=== PATIENT | female | born 1960 | race Caucasian/White ===

== ENCOUNTER 2020-04-09 09:22 | Outpatient (CLI) | payer OTHER, SELFPAY | END 2020-04-09 09:23 | disposition home or self-care (01) | LOC: ANHCOVIDDT 09:22 | PROVIDERS: Visit Provider Plastic Surgery | DX: Z01.818 Encounter for other preprocedural examination (principal); Z11.59 Encounter for screening for other viral diseases | CPT/HCPCS: 87635; C9803; U0003 ==

== ENCOUNTER 2020-04-11 09:28 | Outpatient (CLI) | payer OTHER, SELFPAY ==
[2020-04-11 17:59] LABS: SARS-CoV-2 RNA PCR Negative
== END 2020-04-11 09:29 | disposition home or self-care (01) ==
LOC: ANHCOVIDDT 09:29
PROVIDERS: Visit Provider Plastic Surgery
DX: Z01.818 Encounter for other preprocedural examination (principal); Z11.59 Encounter for screening for other viral diseases
CPT/HCPCS: 87635; C9803; U0003

== ENCOUNTER 2020-04-12 02:10 | Day surgery (SDC) | payer OTHER, SELFPAY ==
[2020-04-09 10:18] VITALS: BMI 18.3
--- NOTE | 2020-04-11 21:45 | HP_ITS ---
DATE OF SERVICE: 04/12/2020 PREOPERATIVE DIAGNOSIS: Verrucous carcinoma, right anterior thigh. HISTORY: This patient is 59. She is referred by Dr. Funez with a new biopsy dated 03/21/2020 indicating verrucous carcinoma from the right thigh. The margins sampled were free of tumor. The biopsy site was [address] Funez's recommendation was for a wider margin of resection. The patient prefers to do this under sedation anesthetic. She has had other skin cancers removed. She is aware of the possibility of scars, numbness, infection, and possible recurrence. ALLERGIES: SHE HAS AN ALLERGY TO SULFA. CURRENT MEDICATIONS: 1. Estradiol. 2. Buspirone. 3. Vitamin D2. 4. Alendronate. PAST SURGICAL HISTORY: Prior surgeries are only related to periodontal structures in 2018. She is a nonsmoker. Has a history of melanoma taken from the left thigh 10 years ago and she suffers some from anxiety she says. FAMILY HISTORY: Noncontributory. SOCIAL HISTORY: She lives in [place]. She works for the [employer] [employer]. PHYSICAL EXAMINATION: GENERAL: She is alert and cooperative. She requests sedation anesthetic for this procedure. VITAL SIGNS: She is 5 feet 5 inches, weighs 116 pounds. She is in no distress. HEENT: Unremarkable. CHEST: Clear to auscultation. HEART: Regular rate and rhythm by palpation. ABDOMEN: Soft, nontender. EXTREMITIES: Normal. SKIN EXAM: Reveals the biopsy site on the right anterior thigh. There is no palpable adenopathy. 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 PLAN: Excision without frozen section under MAC anesthetic. D I MT: Hamzah
[2020-04-12] MEDS: LACTATED RINGERS 1,000 ML 30 ML IV CONT (07:15)
[2020-04-12 07:22] VITALS: BP 102/65; PULSE 78; RESP 20; TEMP 36.8; O2SAT 100
--- NOTE | 2020-04-12 07:46 | WPDHPUPDATE1 ---
History and Physical Update Update Date/Time: 04/12/20 07:46 History and Physical has been reviewed, including an updated exam of the patient. There are NO changes in the patient's condition. Risks, benefits, and alternatives have been discussed and questions answered. Patient agrees to proceed with procedure.
--- NOTE | 2020-04-12 07:58 | WPDANESEPPF ---
Anes - Initial Pre Proc Eval Procedure: Operation Date: 04/12/20 08:15 Proposed Procedures p Excision Of Verrucous Carcinoma Right Anterior Leg - Deepak River MD Date/Time: 04/12/20 07:58 Surgeon: Deepak River MD Pre Op Diagnosis: Verrucous carcinoma right anterior leg Patient Data Age: 59 Gender: F Height: 5 ft 5 in Weight: 49.1 kg Last Vital Signs Temp 36.8 C 04/12/20 07:22 Pulse 78 04/12/20 07:22 Resp 20 04/12/20 07:22 BP 102/65 04/12/20 07:22 Pulse Ox 100 04/12/20 07:22 Allergies Allergy/AdvReac Type Severity Reaction Status Date / Time Sulfa (Sulfonamide AdvReac Unknown NAUSEA Verified 04/12/20 07:22 Antibiotics) Home Medications Medication Instructions Recorded Confirmed Type alendronate 70 mg PO WEEKLY 04/09/20 04/12/20 History buspirone 7.5 mg PO QPM 04/09/20 04/12/20 History ergocalciferol (vitamin D2) 50,000 unit PO WEEKLY 04/09/20 04/12/20 History [Vitamin D2] estradiol 1 mg PO DAILY 04/09/20 04/12/20 History Patient hx anesthesia problems: none Family hx anesthesia problems: none [facility] Past Medical History Medical History (Updated 04/12/20 @ 07:58 by Prabhjot Benson MD) GERD (gastroesophageal reflux disease) Melanoma Surgical History Surgical History (Updated 04/12/20 @ 07:59 by Prabhjot Benson MD) H/O: hysterectomy History of Rishi fundoplication Anes - Eval Final PreProcedure Day of Procedure 04/12/20 07:58 Patient weight: normal Heart: regular rate and rhythm Lungs: clear to auscultation Airway: Mallampati scale class 1 Neurological: alert and oriented Last oral intake: >/= 8 hours ASA classification: II Emergent: no Anesthetic plan: proceed Anesthesia type and monitoring: general GIVS and standard monitoring Informed Consent: The patient's anesthetic plan and its attendant risks and benefits were discussed with the patient/family/POA. Questions were solicited and answers provided to the satisfaction of the patient/family/POA.
[2020-04-12] MEDS: LIDO 1%/EPINEPHRINE 1:100,000 20 ML VIAL 10 ML INFILTRATE (08:54)
[2020-04-12] MEDS: BACITRACIN OINTMENT 15 GM TUBE 1 APPLIC TOPICAL (08:54)
--- NOTE | 2020-04-12 09:08 | P.OPB_ITS ---
Procedure Note - Brief Procedure Note - Brief Date of procedure: 04/12/20 Pre-op diagnosis: Verrucous carcinoma right anterior leg Post-op diagnosis: same Procedure performed: 2.0 cm excision with complex repair 7.0 cm. Anesthesia: MAC Surgeon: Deepak River MD Press Box Custodian: Ubaldo Estimated blood loss (mL): 3 Tourniquet time (min): 0 Drains: No Packing: No Pathology: yes Complications: No immediate complications Condition: stable Disposition: PACU
[2020-04-12 09:13] VITALS: BP 87/58; PULSE 92; RESP 12; O2SAT 100
--- NOTE | 2020-04-12 09:27 | P.OP_ITS ---
Procedure Note - Detailed Date of procedure: 04/12/20 Pre-op diagnosis: Verrucous carcinoma right anterior leg Post-op diagnosis: same Procedure performed: 2.0 cm excision of verrucous carcinoma of the right anterior thigh with complex repair 7 cm Description of procedure: The biopsy site was easily identified and marked in the holding area. The patient was taken to the operating room. She was placed supine on the operating table. A time-out was held and confirmed. She was given IV sedation and the extremity was prepped and draped in the usual fashion. The biopsy site is a round, area approximately 12 mm in diameter. There is 2- 3 mm of surrounding erythema. There excision was marked just outside the erythema and the axis of the closure was marked as well. This area was infiltrated with 1% lidocaine with epinephrine. The excision was carried out as marked into the deep subcutaneous tissue. The specimen was marked at its most proximal edge for 12:00 p.m. and sent for permanent section. The wound margins were extensively undermined at the superficial fascial layer , more than 2 cm in all directions. the wound was closed in several layers with 3-0 Vicryl suture in the fascia and in the dermis. The skin was then closed with a running intradermal 3-0 Vicryl suture. Glue was applied over that. No bandage was applied. She is discharged from the operating room in stable condition. She is discharged with a prescription for hydrocodone 5-325 6. Surgeon: Deepak River MD
[2020-04-12 09:40] VITALS: BP 92/57; PULSE 83; RESP 12
[2020-04-12 10:20] VITALS: BP 101/63; PULSE 76; RESP 14
== END 2020-04-12 10:35 | disposition home or self-care (01) ==
PROVIDERS: PCP Physician Assistant; Visit Provider Plastic Surgery
PROC: (CPT 11602; principal; 2020-04-12 08:15)
DX: C44.702 Unspecified malignant neoplasm of skin of right lower limb, including hip (principal); K21.9 Gastro-esophageal reflux disease without esophagitis; Z85.820 Personal history of malignant melanoma of skin
CPT/HCPCS: 11602; 13121; 88305; A9270; J2250; J2405; J2704; J3010; J7120

== ENCOUNTER → 2020-11-14 13:02 | Outpatient (CLI) | payer OTHER, SELFPAY ==
--- NOTE | ~2020-11-14 | DEXA_ITS ---
Bone Density Report Name: Ana Laura Tipton Age: 60 Sex: Female Ethnicity: White Date of : 1960 Indication: osteopenia; monitoring treatment; hysterectomy; postmenopausal Referring Provider: HEMALATHA WILLIS Study: Bone densitometry was performed. Exam Date: November 14, 2020 Accession number: [id number] Bone Density: Region BMD T-score Z-score Classification AP Spine (L1-L4) 0.983 -0.6 0.7 Normal Femoral Neck (Left) 0.609 -2.2 -1.0 Osteopenia Total Hip (Left) 0.779 -1.3 -0.5 Osteopenia Femoral Neck (Right) 0.601 -2.2 -1.0 Osteopenia Total Hip (Right) 0.720 -1.8 -1.0 Osteopenia Total Hip Mean 0.750 -1.6 -0.8 Osteopenia World Health Organization criteria for BMD impression classify patients as: Normal (T-score at or above -1.0), Osteopenia (T-score between -1.0 and -2.5), or Osteoporosis (T-score at or below -2.5). 10-year Fracture Risk: FRAX not reported because: Treated for osteoporosis Previous Exams: Region Exam Age BMD T-score BMD Change BMD Change Date g/cm2 vs Baseline vs Previous AP Spine(L1-L4) 11/14/2020 60 0.983 -0.6 -0.111* 0.021 06/29/2018 57 0.962 -0.8 -0.132* -0.005 06/09/2015 54 0.967 -0.7 -0.127* -0.064* 05/31/2013 52 1.031 -0.1 -0.063* -0.063* 03/22/2007 46 1.094 0.4 Total Hip(Left) 11/14/2020 60 0.779 -1.3 -0.084* 0.036* 06/29/2018 57 0.743 -1.6 -0.119* -0.062* 06/09/2015 54 0.805 -1.1 -0.057* -0.017 05/31/2013 52 0.822 -1.0 -0.040* -0.040* 03/22/2007 46 0.862 -0.7 Total Hip(Right) 11/14/2020 60 0.720 -1.8 -0.144* -0.003 06/29/2018 57 0.723 -1.8 -0.140* -0.097* 06/09/2015 54 0.820 -1.0 -0.043* 0.027* 05/31/2013 52 0.793 -1.2 -0.071* -0.071* 03/22/2007 46 0.864 -0.6 *Denotes significance at 95% confidence level, LSC for AP Spine = 0.022 g/cm2, LSC for Total Hip = 0.027 g/cm2 Clinical Information Provided by Patient: Is being treated for osteoporosis Has used the following medications: Fosamax (i.e. alendronate), Vitamin D Has the following medical conditions: Hysterectomy Patient maximum height was 65 Menopause Age: 42 No regular weight bearing exercise Drinks caffeinated beverages Onset of menses at age 15 Number of children 1 Impression: The patient
--- NOTE | ~2020-11-14 | MM_ITS ---
EXAMINATION: MM screening juan diego BI w tom HISTORY: Screening mammogram TECHNIQUE: Craniocaudal and mediolateral oblique 3-D tomosynthesis images were obtained and synthetic 2-D images were generated. CAD analysis was submitted and interpreted. COMPARISON: 07/12/2019, 06/29/2018, 06/16/2017 bilateral digital screening mammogram examinations BREAST PARENCHYMAL COMPOSITION: The breasts are heterogeneously dense, which may obscure small masses . FINDINGS: There is an increased number of microcalcifications primarily in the mid to upper outer lef t breast. Diagnostic left mammogram with magnification views is recommended for better definition of these microcalcifications. Otherwise there is no evidence of suspicious mass, calcification, or architectural distortion to sugg est malignancy in either breast. There has been no other suspicious interval change. IMPRESSION: 1. Bilateral microcalcifications, increased in number on the left 2. Diagnostic left mammogram with magnification views is recommended. BI-RADS Category 0: Incomplete: Needs additional imaging evaluation. Reviewed, dictated and finalized at location A. USION SPECIALIST
== END ==
PROVIDERS: PCP Physician Assistant; Visit Provider Obstetrics & Gynecology Gynecology
DX: Z12.31 Encounter for screening mammogram for malignant neoplasm of breast (principal); Z78.0 Asymptomatic menopausal state; R92.8 Other abnormal and inconclusive findings on diagnostic imaging of breast; M85.852 Other specified disorders of bone density and structure, left thigh; M85.851 Other specified disorders of bone density and structure, right thigh
CPT/HCPCS: 77063; 77067; 77080

== ENCOUNTER → 2020-11-27 09:11 | Outpatient (CLI) | payer OTHER, SELFPAY ==
--- NOTE | ~2020-11-27 | MM_ITS ---
EXAMINATION: MM diagnostic mammo unilat LT HISTORY: Indeterminate left breast calcifications on screening mammogram TECHNIQUE: Additional images of the left breast were performed. CAD analysis was submitted and interp reted. COMPARISON: 11/14/2020, 07/12/2019, 06/29/2018, 06/16/2017 FINDINGS: There are regional calcifications in the upper outer quadrant of the left breast. Many appe ar amorphous on the craniocaudal view and demonstrate a linear configuration on the mediolateral view . No suspicious mass is identified. IMPRESSION: 1. Probably benign left breast calcifications. 2. Recommend 6 month follow-up left diagnostic mammogram. BI-RADS category 3, probably benign findings. Reviewed, dictated and finalized at location A. ANICAL COMMISSIONING ENGINEER
== END ==
PROVIDERS: PCP Physician Assistant; Visit Provider Obstetrics & Gynecology Gynecology
DX: R92.8 Other abnormal and inconclusive findings on diagnostic imaging of breast (principal)
CPT/HCPCS: 77065

== ENCOUNTER → 2021-05-28 07:37 | Outpatient (CLI) | payer OTHER, SELFPAY ==
--- NOTE | ~2021-05-28 | MM_ITS ---
EXAMINATION: MM diagnostic juan diego LT w tom HISTORY: Six-month follow-up for probably benign left breast calcifications TECHNIQUE: Craniocaudal, mediolateral, and mediolateral oblique 3-D tomosynthesis images of the breas ts were performed and synthetic 2-D images were generated. Magnification views are also obtained. CAD analysis was submitted and interpreted. COMPARISON: 11/27/2020, 11/14/2020, 07/12/2019, 06/29/2018 BREAST PARENCHYMAL COMPOSITION: The breasts are heterogeneously dense, which may obscure small masses . FINDINGS: Again seen are stable regional calcifications in the upper outer quadrant of the left breas t. Many appear a more fixed on the craniocaudal view and demonstrate a linear configuration on the me diolateral view, suggestive of milk of calcium. No suspicious mass is identified. IMPRESSION: 1. Probably benign left breast calcifications. 2. Recommend 6 month follow-up left diagnostic mammogram. BI-RADS category 3, probably benign findings. Reviewed, dictated and finalized at location A.
== END ==
PROVIDERS: Visit Provider Obstetrics & Gynecology Gynecology
DX: R92.8 Other abnormal and inconclusive findings on diagnostic imaging of breast (principal)
CPT/HCPCS: 77061; 77065; G0279

== ENCOUNTER 2021-08-03 10:57 | Emergency (ER) | payer OTHER, SELFPAY ==
[2021-08-03 11:10] VITALS: BP 119/68; PULSE 65; RESP 16; TEMP 36.6; O2SAT 98
--- NOTE | 2021-08-03 12:37 | ED.URI ---
HPI - URI/Sore Throat General Chief Complaint: Upper Respiratory Infection Stated Complaint: de guzman/chills/sob Time Seen by Provider: 08/03/21 12:38 Source: patient, family, RN notes reviewed and old records reviewed Mode of arrival: ambulatory Limitations: no limitations History of Present Illness HPI Narrative: 60 year old female presents to [facility] care with 5 day duration of headache,cough, chills,some sore throat discomfort, nasal drainage and congestion. Patient states that when she cough she feels a little short of breath, rates frontal headache 6/10 and aching. Patient states that she has been taking Advil and cough drop, reports that she has been COVID vaccinated. She reports that she is concerned with her symptoms because she has had recent exposure to positive relatative. MD elicited complaint: cough, sore throat, rhinorrhea, nasal congestion and other (headache) Onset (ago): day(s) (DAY 5 OF SYMPTOMS) Related Data Home Medications Medication Instructions Recorded Confirmed buspirone 7.5 mg PO QPM 04/09/20 04/12/20 ergocalciferol (vitamin D2) 50,000 unit PO WEEKLY 04/09/20 04/12/20 [Vitamin D2] estradiol 1 mg PO DAILY 04/09/20 04/12/20 Allergies Allergy/AdvReac Type Severity Reaction Status Date / Time Sulfa (Sulfonamide AdvReac Unknown NAUSEA Verified 08/03/21 12:00 Antibiotics) Review of Systems Review of Systems: CONSTITUTIONAL: Denies fever, SOME chills, no sweats. EYES: Denies visual changes, redness, or discharge. ENT: POSITIVE rhinorrhea, congestion, sore throat, NO otalgia. CARDIOVASCULAR: Denies chest pain, palpitations, or edema. RESPIRATORY: POSITIVE DRY cough NO dyspnea at rest mild when coughing. GASTROINTESTINAL: Denies abdominal pain, nausea, vomiting, or diarrhea. GENITOURINARY: Denies dysuria or hematuria. SKIN: Denies rash or itching. MUSCULOSKELETAL: Denies back pain, joint pain, or myalgia. NEUROLOGIC: POSITIVE INTERMITTENT frontal headache,NO numbness, or weakness. PSYCHIATRIC: Positive history of anxiety or depression. All systems reviewed & are unremarkable except as noted in HPI and below PMFSH Past Medical History Medical History (Updated 08/04/21 @ 00:00 by Background Daemon) GERD (gastroesophageal reflux disease) Melanoma Surgical History Surgical History (Updated 08/09/21 @ 17:29 by Harper Hernandez NP) H/O: hysterectomy History of Rishi fundoplication Status post surgical removal of malignant neoplasm of skin Family History Family History (Updated 08/09/21 @ 17:29 by Harper Hernandez NP) Father Heart disease Other Cerebrovascular accident Social History Social History (Updated 08/09/21 @ 17:27 by Harper Hernandez NP) Smoking status: Never smoker Alcohol intake: never Substance use: never Living arrangements: with family Gender identity (if verbalized by the patient): Female Comments At time of signature, agree with nursing past medical, surgical, social and family history. There is no relevant family history pertinent to the presenting complaint Exam Narrative: GENERAL: Well-appearing, well-nourished, and in no acute distress. HEAD: Normocephalic, atraumatic. EYES: PERRLA and EOMI. ENT: Nares red, clear rhinorrhea no epistaxis. Mucous membranes moist.TM's normal with good light reflex, throat mild redness witu no lesions or exudates, no tonsil swelling some post nasal drainage. NECK: Supple.no lymphadenopathy CHEST: Clear to auscultation. No respiratory distress.SAO2 98% dry cough HEART: Regular rate and rhythm. No murmur heard. Normal peripheral pulses. ABDOMEN: Soft, nontender, nondistended, normal active bowel sounds. EXTREMITIES: Normal range of motion. No edema. SKIN: Warm, dry, no rash. NEURO: No focal deficits. Alert and oriented x3. Course Vital Signs Vital signs: Vital Signs Temperature 36.6 C 08/03/21 11:10 Pulse Rate 65 08/03/21 11:10 Respiratory Rate 16 08/03/21 11:10 Blood Pressure 119/68 08/03/21 11:1
== END 2021-08-03 13:00 | disposition home or self-care (01) ==
PROVIDERS: Emergency Provider Registered Nurse; PCP Physician Assistant
DX: J06.9 Acute upper respiratory infection, unspecified (principal); Z20.822 Contact with and (suspected) exposure to COVID-19; K21.9 Gastro-esophageal reflux disease without esophagitis; Z85.820 Personal history of malignant melanoma of skin
CPT/HCPCS: 87426; 99213; C9803; G0463

== ENCOUNTER → 2021-12-17 08:49 | Outpatient (CLI) | payer OTHER, SELFPAY ==
--- NOTE | ~2021-12-17 | MM_ITS ---
EXAMINATION: MM diagnostic juan diego BI w tom HISTORY: Six-month follow-up for probably benign left breast calcifications TECHNIQUE: Craniocaudal, mediolateral, and mediolateral oblique 3-D tomosynthesis images of the brekehinde ts were performed and synthetic 2-D images were generated. CAD analysis was submitted and interpreted . COMPARISON: 05/28/2021, 11/27/2020, 11/14/2020, 07/12/2019 BREAST PARENCHYMAL COMPOSITION: The breasts are heterogeneously dense, which may obscure small masses . FINDINGS: Left breast: There is stable regional calcifications in the upper outer quadrant of the left breast. Many and appear to be amorphous on the craniocaudal view and demonstrate a linear configuration on th e mediolateral view, suggestive of milk of calcium. No suspicious mass or architectural distortion ar e identified. Right breast: There is no evidence of suspicious mass, calcification, or architectural distortion to suggest malignancy. There has been no suspicious interval change. IMPRESSION: 1. Stable, probably benign left breast calcifications. 2. Given one year of interval stability, recommend 12 month followup diagnostic mammogram. BI-RADS category 3, probably benign findings. Reviewed, dictated and finalized at location A. ORMING MACHINE OPERATOR
== END ==
PROVIDERS: PCP Physician Assistant; Visit Provider Obstetrics & Gynecology Gynecology
DX: R92.8 Other abnormal and inconclusive findings on diagnostic imaging of breast (principal)
CPT/HCPCS: 77062; 77066; G0279

== ENCOUNTER → 2022-10-22 08:43 | Outpatient (CLI) | payer OTHER, SELFPAY ==
--- NOTE | ~2022-10-22 | MM_ITS ---
EXAMINATION: MM diagnostic juan diego BI w tom HISTORY: Follow-up for probably benign left breast calcifications TECHNIQUE: Craniocaudal, mediolateral, and mediolateral oblique 3-D tomosynthesis images of the breas ts were performed and synthetic 2-D images were generated. Magnification views of the left breast are also obtained. CAD analysis was submitted and interpreted. COMPARISON: 12/17/2021, 05/28/2021, 11/27/2020,11/14/2020,07/12/2019 BREAST PARENCHYMAL COMPOSITION: The breasts are heterogeneously dense, which may obscure small masses . FINDINGS: No suspicious mass, calcification, or architectural distortion are identified in either tahir ast to suggest malignancy. There has been no suspicious interval change. Again noted are stable regio nal calcifications in the upper outer quadrant of the left breast, some of which appear to be amorpho us on the craniocaudal view and demonstrate a linear configuration on the mediolateral oblique view. IMPRESSION: 1. No mammographic evidence of malignancy. 2. Recommend routine screening mammography in one year. BI-RADS Category 2: Benign finding(s). Reviewed, dictated and finalized at location A. NCIAL INTERNSHIP
== END ==
PROVIDERS: PCP Physician Assistant; Visit Provider Obstetrics & Gynecology Gynecology
DX: R92.8 Other abnormal and inconclusive findings on diagnostic imaging of breast (principal)
CPT/HCPCS: 77062; 77066; G0279

== ENCOUNTER → 2022-12-04 13:10 | Outpatient (CLI) | payer OTHER, SELFPAY ==
--- NOTE | ~2022-12-04 | DEXA_ITS ---
Bone Density Report Name: REGINA WATSON Age: 62 Sex: Female Ethnicity: White Date of : 1960 Indication: osteopenia; hysterectomy; postmenopausal Referring Provider: HEMALATHA WILLIS Study: Bone densitometry was performed. Exam Date: December 04, 2022 Accession number: [id number] Bone Density: Region BMD T-score Z-score Classification AP Spine (L1-L4) 0.968 -0.7 0.7 Normal Femoral Neck (Left) 0.600 -2.2 -1.0 Osteopenia Total Hip (Left) 0.768 -1.4 -0.5 Osteopenia Femoral Neck (Right) 0.591 -2.3 -1.0 Osteopenia Total Hip (Right) 0.711 -1.9 -0.9 Osteopenia Total Hip Mean 0.740 -1.7 -0.7 Osteopenia World Health Organization criteria for BMD impression classify patients as: Normal (T-score at or above -1.0), Osteopenia (T-score between -1.0 and -2.5), or Osteoporosis (T-score at or below -2.5). 10-year Fracture Risk(1): Major Osteoporotic Fracture 8.7% Hip Fracture 1.5% Reported Risk Factors: [place] (), Neck BMD=0.591, BMI=18.2 (1) FRAX(R) Version 3.08. Fracture probability calculated for an untreated patient. Fracture probability may be lower if the patient has received treatment. Previous Exams: Region Exam Age BMD T-score BMD Change BMD Change Date g/cm2 vs Baseline vs Previous AP Spine(L1-L4) 12/04/2022 62 0.968 -0.7 -0.126* -0.015 11/14/2020 60 0.983 -0.6 -0.111* 0.021 06/29/2018 57 0.962 -0.8 -0.132* -0.005 06/09/2015 54 0.967 -0.7 -0.127* -0.064* 05/31/2013 52 1.031 -0.1 -0.063* -0.063* 03/22/2007 46 1.094 0.4 Total Hip(Left) 12/04/2022 62 0.768 -1.4 -0.094* -0.011 11/14/2020 60 0.779 -1.3 -0.084* 0.036* 06/29/2018 57 0.743 -1.6 -0.119* -0.062* 06/09/2015 54 0.805 -1.1 -0.057* -0.017 05/31/2013 52 0.822 -1.0 -0.040* -0.040* 03/22/2007 46 0.862 -0.7 Total Hip(Right) 12/04/2022 62 0.711 -1.9 -0.153* -0.009 11/14/2020 60 0.720 -1.8 -0.144* -0.003 06/29/2018 57 0.723 -1.8 -0.140* -0.097* 06/09/2015 54 0.820 -1.0 -0.043* 0.027* 05/31/2013 52 0.793 -1.2 -0.071* -0.071* 03/22/2007 46 0.864 -0.6 *Denotes significance at 95% confidence level, LSC for AP Spine = 0.022 g/cm2, LSC for Total Hip = 0.027 g/cm2 Clinical Information Provided by Patient:
== END ==
PROVIDERS: PCP Physician Assistant; Visit Provider Obstetrics & Gynecology Gynecology
DX: Z78.0 Asymptomatic menopausal state (principal); M85.88 Other specified disorders of bone density and structure, other site; M85.852 Other specified disorders of bone density and structure, left thigh; M85.851 Other specified disorders of bone density and structure, right thigh
CPT/HCPCS: 77080

== ENCOUNTER 2023-07-02 09:30 | Day surgery (SDC) | payer OTHER, SELFPAY ==
--- NOTE | 2023-07-01 11:05 | WPDANESEPPF ---
Anes - Initial Pre Proc Eval Procedure: Operation Date: 07/02/23 11:30 Proposed Procedures p Screening Colonoscopy - Ubaldo Pinto MD Date/Time: 07/01/23 11:05 Surgeon: Ubaldo Pinto MD Pre Op Diagnosis: Neoplasm Screening Patient Data Age: 62 Gender: F Height: 1.65 m Weight: 52.5 kg Allergies Allergy/AdvReac Type Severity Reaction Status Date / Time Sulfa (Sulfonamide AdvReac Unknown NAUSEA Verified 07/02/23 09:52 Antibiotics) Home Medications Medication Instructions Recorded Confirmed Type buspirone 5 mg tablet 7.5 mg PO QPM 04/09/20 07/02/23 History ergocalciferol (vitamin D2) 1,250 50,000 unit PO WEEKLY 04/09/20 07/02/23 History mcg (50,000 unit) capsule (Vitamin D2) estradiol 1 mg tablet 1 mg PO DAILY 04/09/20 07/02/23 History sodium,potassium,mag sulfates 17.5 See Rx Instructions PO .COMPLEX 06/15/23 06/23/23 Rx gram-3.13 gram-1.6 gram oral soln #354 mL (Suprep Bowel Prep Kit) Patient hx anesthesia problems: none Family hx anesthesia problems: none Results Review: All pre-operative results and documents have been reviewed as part of the pre-operative evaluation. [facility] Past Medical History Medical History (Updated 07/02/23 @ 10:22 by Ubaldo Pinto MD) Endometriosis GERD (gastroesophageal reflux disease) Melanoma Surgical History Surgical History (Updated 08/09/21 @ 17:29 by Harper Hernandez NP) H/O: hysterectomy History of Rishi fundoplication Status post surgical removal of malignant neoplasm of skin Family History Family History (Updated 08/09/21 @ 17:29 by Harper Hernandez NP) Father Heart disease Other Cerebrovascular accident Social History Social History (Updated 08/09/21 @ 17:27 by Harper Hernandez NP) Smoking status: Never smoker Alcohol intake: never Substance use: never Substance use type: does not use Living arrangements: alone Gender identity (if verbalized by the patient): Female Spiritual care concerns: No Anes - Eval Final PreProcedure Day of Procedure 07/01/23 11:05 Patient weight: normal Heart: regular rate and rhythm Lungs: clear to auscultation and normal air movement Airway: Mallampati scale class II Neurological: alert and oriented Last oral intake: >/= 8 hours ASA classification: II Emergent: no Anesthetic plan: proceed Anesthesia type and monitoring: general GIVS and standard monitoring Results Review: All pre-operative results and documents have been reviewed as part of the pre-operative evaluation. Informed Consent: The patient's anesthetic plan and its attendant risks and benefits were discussed with the patient/family/POA. Questions were solicited and answers provided to the satisfaction of the patient/family/POA.
[2023-07-02 09:54] VITALS: BP 99/59; PULSE 76; RESP 14; TEMP 36.3; O2SAT 100
[2023-07-02] MEDS: LACTATED RINGERS 1,000 ML 150 ML IV CONT (10:12)
--- NOTE | 2023-07-02 10:20 | P.HP_ITS ---
History of Present Illness History of Present Illness Consent: Risks, benefits, and alternatives have been discussed and questions answered. Patient agrees to proceed with procedure. Chief complaint: Neoplasm Screening Narrative: Ana Laura Tipton is a 62 year old female Presents for screening colonoscopy. Patient's current weight appetite and bowel movements are normal. Patient denies abdominal pain. She has had no bleeding. Family history is noncontributory. This colonoscopy 10 years ago was unremarkable. Family history noncontributory. Review of Systems Review of Systems: Systems noncontributory. FOR[facility]LY [facility], [facility] Past Medical History Medical History (Updated 07/02/23 @ 10:22 by Ubaldo Pinto MD) Endometriosis GERD (gastroesophageal reflux disease) Melanoma Surgical History Surgical History (Updated 08/09/21 @ 17:29 by Harper Hernandez NP) H/O: hysterectomy History of Rishi fundoplication Status post surgical removal of malignant neoplasm of skin Family History Family History (Updated 08/09/21 @ 17:29 by Harper Hernandez NP) Father Heart disease Other Cerebrovascular accident Social History Social History (Updated 08/09/21 @ 17:27 by Harper Hernandez NP) Smoking status: Never smoker Alcohol intake: never Substance use: never Substance use type: does not use Living arrangements: alone Gender identity (if verbalized by the patient): Female Spiritual care concerns: No Meds Home Medications and Allergies Home Medications Medication Instructions Recorded Confirmed Type buspirone 5 mg tablet 7.5 mg PO QPM 04/09/20 07/02/23 History ergocalciferol (vitamin D2) 1,250 50,000 unit PO WEEKLY 04/09/20 07/02/23 History mcg (50,000 unit) capsule (Vitamin D2) estradiol 1 mg tablet 1 mg PO DAILY 04/09/20 07/02/23 History sodium,potassium,mag sulfates 17.5 See Rx Instructions PO .COMPLEX 06/15/23 06/23/23 Rx gram-3.13 gram-1.6 gram oral soln #354 mL (Suprep Bowel Prep Kit) Allergies Allergy/AdvReac Type Severity Reaction Status Date / Time Sulfa (Sulfonamide AdvReac Unknown NAUSEA Verified 07/02/23 09:52 Antibiotics) Vital Signs Vital Signs - 24 hr 07/02/23 09:54 Temperature 97.4 F L Pulse Rate 76 Respiratory Rate 14 Blood Pressure 99/59 L Pulse Oximetry 100 Oxygen Delivery Room Air Exam Narrative: Physical exam reveals patient to be alert. Vital signs stable. HEENT exam is unremarkable. Patient is anicteric. Lungs are clear to auscultation and to percussion is without murmur stress sounds. Appy sounds are present soft nontender with no organomegaly. Digital external rectal exam is normal. Assessment and Plan Assessment and plan (1) Encounter for screening colonoscopy: Code(s): Z12.11 - Encounter for screening for malignant neoplasm of colon Status: Acute Assessment and Plan: Patient presents for screening colonoscopy. She appears to be at average risk for colon polyps.
[2023-07-02 12:01] VITALS: BP 94/57; PULSE 79; RESP 14; O2SAT 99
[2023-07-02 12:11] VITALS: BP 93/68; PULSE 74; RESP 16; O2SAT 100
[2023-07-02 12:21] VITALS: BP 108/69; PULSE 67; RESP 16; O2SAT 100
--- NOTE | 2023-07-02 12:37 | WPDANESPN ---
Anes - Prog Note Post-Op Date/Time: 07/02/23 12:37 Cardiovascular status: normal Respiratory status: normal Airway patency: baseline Mental status: baseline Post-Op hydration status: normal Vital Signs: Last Vital Signs Temp 36.3 C L 07/02/23 09:54 Pulse 74 07/02/23 12:11 Resp 16 07/02/23 12:11 BP 93/68 L 07/02/23 12:11 Pulse Ox 100 07/02/23 12:11 O2 Del Method Room Air 07/02/23 12:11 Pain Score (VAS): 0 I/O: Intake & Output 07/01/23 07/02/23 07/02/23 23:59 07:59 15:59 Intake Total 500 Balance 500 Post-procedural complaints: none Patient Feedback: Patient satisfied with anesthetic care. Other Findings: Patient vital signs back to baseline. Patient denies nausea and vomiting. Patient's pain under control. Patient OK for discharge.
== END 2023-07-02 12:35 | disposition home or self-care (01) ==
PROVIDERS: PCP Physician Assistant; Visit Provider Internal Medicine Gastroenterology
PROC: 0DJD8ZZ Inspection of Lower Intestinal Tract, Via Natural or Artificial Opening Endoscopic (ICD-10-PCS; CPT 45378; principal; 2023-07-02 11:30)
DX: Z12.11 Encounter for screening for malignant neoplasm of colon (principal)
CPT/HCPCS: 45378

== ENCOUNTER 2024-02-17 12:07 | Outpatient (CLI) | payer OTHER, SELFPAY ==
--- NOTE | ~2024-02-17 | MM_ITS ---
EXAMINATION: MM screening juan diego BI w tom HISTORY: Screening mammogram TECHNIQUE: Craniocaudal and mediolateral oblique 3-D tomosynthesis images were obtained and synthetic 2-D images were generated.. Bilateral rotated lateral CC views. CAD analysis was submitted and inter preted. COMPARISON: 10/22/2022 diagnostic bilateral mammogram 12/17/2021 bilateral diagnostic mammography BREAST PARENCHYMAL COMPOSITION: The breasts are extremely dense, which lowers the sensitivity of mamm ography.... FINDINGS: Scattered bilateral benign calcifications. There is no evidence of suspicious mass, calcifi cation, or architectural distortion to suggest malignancy in either breast. There has been no suspici ous interval change. IMPRESSION: 1. No mammographic evidence of malignancy. 2. Recommend routine screening mammography in one year. BI-RADS Category 2: Benign finding(s). Reviewed, dictated and finalized at location A.
== END 2024-02-17 12:08 ==
LOC: MICIMG 12:08
PROVIDERS: PCP Internal Medicine; Visit Provider Obstetrics & Gynecology Gynecology
DX: Z12.31 Encounter for screening mammogram for malignant neoplasm of breast (principal)
CPT/HCPCS: 77063; 77067

== ENCOUNTER 2025-02-20 10:23 | Outpatient (CLI) | payer BC, SELFPAY ==
--- NOTE | ~2025-02-20 | MM_ITS ---
EXAMINATION: MM screening juan diego BI w tom HISTORY: Screening TECHNIQUE: Craniocaudal and mediolateral oblique 3-D tomosynthesis images were obtained and synthetic 2-D images were generated. CAD analysis was submitted and interpreted. COMPARISON: Comparison to multiple prior studies sequentially, with oldest reviewed study dated 10/24. BREAST PARENCHYMAL COMPOSITION: Dense: The breasts are heterogeneously dense, which may obscure small masses FINDINGS: There are asymmetries laterally and posteriorly in the left breast on CC view. The right br east is stable without evidence for malignancy. IMPRESSION: 1. Developing left breast asymmetry laterally on CC view, posterior third. 2. Additional mammographic views and possible breast ultrasound are recommended. BI-RADS Category 0: Incomplete: Needs additional imaging evaluation. Reviewed, dictated and finalized at location A. IMPRESSION: 1. Developing left breast asymmetry laterally on CC view, posterior third. 2. Additional mammographic views and possible breast ultrasound are recommended . BI-RADS Category 0: Incomplete: Needs additional imaging evaluation.
== END 2025-02-20 10:24 | disposition home or self-care (01) ==
LOC: MICIMG 10:23
PROVIDERS: PCP Internal Medicine; Visit Provider Internal Medicine
DX: Z12.31 Encounter for screening mammogram for malignant neoplasm of breast (principal); R92.8 Other abnormal and inconclusive findings on diagnostic imaging of breast
CPT/HCPCS: 77063; 77067

== ENCOUNTER 2025-03-03 12:28 | Outpatient (CLI) | payer BC, SELFPAY ==
--- NOTE | ~2025-03-03 | US_ITS ---
Please refer to diagnostic mammogram report dated 03/03/2025 for details. Reviewed, dictated and finalized at location A.
--- NOTE | ~2025-03-03 | MM_ITS ---
EXAMINATION: MM diagnostic juan diego LT w tom HISTORY: Follow-up left breast asymmetry TECHNIQUE: Additional 3-D tomosynthesis images of left were performed and synthetic 2-D images were g enerated. CAD analysis was submitted and interpreted. High resolution complete left breast ultrasound was performed. COMPARISON: Comparison to multiple prior studies sequentially, with oldest reviewed study dated 03/2021. BREAST PARENCHYMAL COMPOSITION: Dense: The breasts are extremely dense, which lowers the sensitivity of mammography. FINDINGS: MAMMOGRAPHIC FINDINGS: There are no suspicious masses, calcifications or architectural distortion to suggest malignancy. ULTRASOUND: Complete US of all 4 quadrants of the left breast/s and retroareolar region was reviewed. There are m ultiple cysts of the left breast including a complicated 7 mm cyst at 12:00, 1 cm from the nipple. No suspicious masses to suggest malignancy. IMPRESSION: 1. No evidence for malignancy in the left breast. Benign findings. 2. . Routine yearly screening mammogram and regular clinical breast examination are recommended. BI-RADS Category 2: Benign finding(s). Reviewed, dictated and finalized at location A.
--- OUTSIDE RECORDS SUMMARY | 2025-03-03 12:32 | XMS_ITS | Encounter Summary ---
Author Organization [facility] Address [address] [place] [address] Care Team Providers Care Per Diem Clerk Name Role Phone Unavailable Primary Care Provider Unavailabl e Encounter Details Date Type Department Care Team (Late st Contact Info) Description 07/14/2023 Lab Requisition [facility] - DermPath Lab [address] [place] [id number] Duke Funez MD [address] [place], [place] [id number] Social History Tobacco Use Types Packs/Day Years Used Date Smoking Tobacco: Never Assessed Sex and Gender Information Value Date Recorded Sex Assigned at Not on file Gender Identity Not on file Sexual Orientation Not on file documented as of this encounter Plan of Treatment Not on file documented as of this encounter Procedures Procedure Name Priority Date/Time Associated Diagnosis Comments DERMATOPATHOLOGY Routine 07/13/2023 12:0 0 AM CDT documented in this encounter Results * DERMATOPATHOLOGY (07/13/2023 12:00 AM CDT) Case Report Dermatopathology Report Case: [id number] Authorizing Provider: Duke Funez MD Collected: 07/13/2023 12:00 AM Ordering Location: [facility] DermPath Lab Received: 07/14/2023 01:49 PM Pathologist: Akanksha Lee MD Specimen: Skin, left med abdomen 3 2:29 PM CDT DERMATOPATHOLOGY LABORATORY Final Diagnosis Specimen A. 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 Check Margins 2:29 PM CDT DERMATOPATHOLOGY LABORATORY Gross Description Specimen A: Received is one formalin filled container labeled with the patients name and designated left med abdomen. The specimen consists of a shave removal measuring 6x6x1 mm. Jar 0. 2:29 PM CDT DERMATOPATHOLOGY LABORATORY Microscopic Description Specimen A. SKIN, left med abdomen: In the dermis, there are dilated vascular spaces surrounded by thin, widely spaced endothelial cells. This lesion is present at the margin of the specimen. 3 2:29 PM CDT DERMATOPATHOLOGY LABORATORY Disclaimer An external and internal positive and negative controls are appropriate for the histochemical, immunohistochemical and immunofluorescence stain(s) in this case (if any), except where stated explicitly. The performance characteristics of the stain(s) cited in this report were developed and its performance characteristic determined by the Dermatopathology Laboratory at [facility], directed by Dr. Mayito Butt. These tests need not be, and therefore are not, approved by the [place] Food and Drug Administration. The tests are used for clinical purposes. Billing Codes Specimen Charges Stain Charges 80675 1 3 2:29 PM CDT DERMATOPATHOLOGY LABORATORY Embedded Images 2:29 PM CDT DERMATOPATHOLOGY LABORATORY Pathology/Cytolog y TISSUE SPECIMEN FROM SKIN / Unknown 07/13/2023 07/14/2023 1:49 PM CDT Duke Funez MD LAB - PATHOLOGY/CYTO LOGY ORDERABLES DERMATOPATHOLOGY LABORATORY [facility] - Department of Dermatology [address], [address] [phone] documented in this encounter Visit Diagnoses Not on filedocumented in this encounter
--- OUTSIDE RECORDS SUMMARY | 2025-03-03 12:32 | XMS_ITS | Referral Summary ---
Author Organization [facility] [address] Address [address] [place] [phone] Care Team Providers Care Preschool Education Director Name Role Phone Ramón Spencer MD Primary Care Provider [phone] Encounters Date Type Department Care Team Description 02/05/2025 11:15 AM CDT Office Visit [facility] at [address] [address] Kika Junior NP Acute non-recurrent pansinusitis (Primary Dx) from Last 3 Months Allergies Active Allergy Reactions Criticality Noted Date Comments Amoxicillin-Pot Clavulanate Nausea only High 022 Sulfa (Sulfonamide Antibiotics) Unknown 05/2022 Medications busPIRone (BUSPAR) 5 mg tablet Take 1 tablet (5 mg total) by mouth 2 (two) times a day Active estradioL (ESTRACE) 1 mg tablet Take 1 tablet (1 mg total) by mouth daily Active alendronate (FOSAMAX) 70 mg tablet Take 1 tablet (70 mg total) by mouth once a week Active calcium carbonate/vitamin D3 (CALTRATE 600 PLUS D ORAL) 2 (two) times a day Active benzonatate (TESSALON) 200 mg capsuleIndication s:Acute non-recurrent pansinusitis Take 1 capsule (200 mg total) by mouth 3 (three) times a day as needed for cough 30 capsule 5 Active doxycycline (VIBRAMYCIN) 100 mg capsuleIndication s:Acute non-recurrent pansinusitis Take 1 tablet/capsu le (100 mg total) by mouth 2 (two) times a day for 7 days 14 tablet/capsul e 02/13/20 25 Active Problems No known active problems Social History Tobacco Use Types Packs/Day Years Used Date Smoking Tobacco: Never Assessed Comments Unknown Sex and Gender Information Value Date Recorded Sex Assigned at Not on file Legal Sex Female 9:07 AM HEAT AND FROST INSULATOR Gender Identity Not on file Sexual Orientation Not on file Last Filed Vital Signs Vital Sign Reading Time Taken Comments Blood Pressure 107/76 02/05/2025 10:16 AM CDT Pulse 93 02/05/2025 10:16 AM CDT Temperature 36.6 C (97.9 F) 02/05/2025 10:16 AM CDT Respiratory Rate 18 02/05/2025 10:16 AM CDT Oxygen Saturation 99% 02/05/2025 10:16 AM CDT Inhaled Oxygen Concentration - - Weight 50.9 kg (112 lb 4 oz) 11/29/2021 11:09 AM HEAT AND FROST INSULATOR Height 165.1 cm (5' 5 ) 11/29/2021 11:09 AM HEAT AND FROST INSULATOR Body Mass Index 18.68 11/29/2021 11:09 AM HEAT AND FROST INSULATOR Plan of Treatment Not on file Insurance [facility] HMO/PPO Address: [facility] [address] [place] [address] [place] Care Teams Preschool Education Director Relationship Specialty Start Date End Date Ramón Spencer MD [facility] [place] [address] PCP - General Internal Medicine 02/05/25
--- OUTSIDE RECORDS SUMMARY | 2025-03-03 12:32 | XMS_ITS | Clinical Summary ---
Author Organization [facility] [place] [address] Address [address] [place] [phone] Care Team Providers Care Clinical Research Technician Name Role Phone Ramón Spencer MD Primary Care Provider [phone] Allergies Active Allergy Reactions Criticality Noted Date [...] day for 7 days 14 tablet/capsul e 5 02/13/20 25 Active Problems No known active problems Encounters Date Type Department Care Team Description 02/05/2025 11:15 AM CDT Office Visit [facility] Care at [address] [address] Kika Junior NP Acute non-recurrent pansinusitis (Primary Dx) from Last 3 Months Social History Tobacco Use Types Packs/Day Years Used Date Smoking Tobacco: Never Assessed Comments Unknown Sex and Gender Information Value Date Recorded Sex Assigned at Not on file Legal Sex Female 9:07 AM BAND LEADER Gender Identity Not on file Sexual Orientation Not on file Obstetrics History Last Filed Vital Signs Vital Sign Reading Time Taken Comments Blood Pressure 107/76 02/05/2025 10:16 AM CDT Pulse 93 02/05/2025 10:16 AM CDT Temperature 36.6 C (97.9 F) 02/05/2025 10:16 AM CDT Respiratory Rate 18 02/05/2025 10:16 AM CDT Oxygen Saturation 99% 02/05/2025 10:16 AM CDT Inhaled Oxygen Concentration - - Weight 50.9 kg (112 lb 4 oz) 11/29/2021 11:09 AM BAND LEADER Height 165.1 cm (5' 5 ) 11/29/2021 11:09 AM BAND LEADER Body Mass Index 18.68 11/29/2021 11:09 AM BAND LEADER Plan of Treatment Health Maintenance Due Date Last Done Comments Breast Cancer Screening-Mammogram 1962 Cervical Cancer Screening 1962 Colon Cancer Screening-Colonoscopy 1962 Depression Screening 1962 Hepatitis C Screening 1962 DTaP/Tdap/Td Vaccine (1 - Tdap) 1973 Hepatitis B Screening 1980 Regular Well Visit/Exam 18-64 1980 Zoster Vaccine (1 of 2) 2012 Covid-19 Vaccine (3 - season) 2024 01/29/2021, 12/27/2020 Influenza Vaccine (#1) 2024 , 08/12/2020, 09/04/2019, Additional history exists Pneumococcal vaccine <65 Aged Out No longer eligible based on patient's age to complete this topic Insurance [facility] HMO/PPO Address: [address] [address] [place] [address] Care Teams Clinical Research Technician Relationship Specialty Start Date End Date aRmón Spencer MD [address] [place] [address] PCP - General Internal Medicine 02/05/25
--- OUTSIDE RECORDS SUMMARY | 2025-03-03 12:32 | XMS_ITS | Continuity of Care Document ---
Author Organization [facility] Address [address] [place] [address] Phone Care Team Providers Care Director Student Union Name Role Phone Harrell OD, Ubaldo Unavailable Unavailable Procedures Procedure Date Eye Exam & Treatment Refraction Eye Exam & Treatment Refraction Eye Exam Established Pt Eye Exam & Treatment Refraction Advance Directives Directive Yes / No Effective Date File Name No Information Encounters Encounter Description Practice Location Reason(s) For Visit Diagnoses Date Provider Providers Copied on Encounter [facility], [address] [place] [address] [address], [place], [place], [id number], tel:[phone] [facility] No Information Oct-2 2-201 0 Harrell OD Ubaldo. [address], [place], [address], [place]. tel:[phone] [facility], [address] [place] [address] [address], [place], [place], [id number], [place] tel:[phone] [facility] No Information Oct-2 3-200 9 Harrell OD Ubaldo. [address], [place], [address], [place]. tel:[phone] [facility], [address] [place] [address] [address], [place], [place], [id number], tel:[phone] [facility] [place] No Information Oct-1 7-200 8 Doisy Edward. [address], [place], [address], [place]. tel:[phone] [facility], [address], [place], [place], [id number], [place] tel:[phone] [facility] [place] No Information Sep-0 7-200 7 Harrell OD Ubaldo. [address] [facility] , [address], [place], [address], [place]. tel:[phone] Family History Family Member Type Diagnosis Age At Onset No Information Payers Payer name Insurance type Covered green party ID Ethan tanner(s) [facility] [id number] Social History Type Description Quantity Date Captured Comments Sex Female Smoking Status No Information Chief Complaint And Reason For Visit No Information Reason For Referral Reason For Referral No Information History Of Present Illness Encounter Date Complaint History Of Prese nt Illness No Information Functional Status Date Functional Assessmen t No Information Instructions Date Instruction Additional Infor mation No Information Assessments Type Assessment Date No Information Patient Care Teams Name Effective Dates (start - stop) Status Members No Information
--- OUTSIDE RECORDS SUMMARY | 2025-03-03 12:32 | XMS_ITS | Encounter Summary ---
Author Organization [facility] Address [address] [place] [address] Care Team Providers Care Clinic Clerk Name Role Phone Unavailable Primary Care Provider Unavailabl e Encounter Details Date Type Department Care Team (Late st Contact Info) Description 03/22/2020 Lab Requisition [facility] DermPath Lab [address] [place] [phone] Duke Funez MD [address] [place] [address] Social History Tobacco Use Types Packs/Day Years Used Date Smoking Tobacco: Never Assessed Sex and Gender Information Value Date Recorded Sex Assigned at Not on file Gender Identity Not on file Sexual Orientation Not on file documented as of this encounter Plan of Treatment Not on file documented as of this encounter Procedures Procedure Name Priority Date/Time Associated Diagnosis Comments DERMATOPATHOLOGY Routine 03/21/2020 12:0 0 AM CDT documented in this encounter Results * DERMATOPATHOLOGY (03/21/2020 12:00 AM CDT) Case Report Dermatopathology Report Case: [id number] Authorizing Provider: Duke Funez MD Collected: 03/21/2020 12:00 AM Ordering Location: [facility] DermPath Lab Received: 03/22/2020 12:04 PM Pathologist: Nohelia Butt MD Specimen: Skin, right mid ant thigh 0 4:27 PM CDT DERMATOPATHOLOGY LABORATORY Final Diagnosis Specimen A. 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 Check margins. 0 4:27 PM CDT DERMATOPATHOLOGY LABORATORY Gross Description Specimen A: Received is one formalin filled container labeled with the patients name and designated right mid ant thigh. The specimen consists of a shave removal measuring [id number], bisected. The margin is inked green. Jar 0. 0 4:27 PM CDT DERMATOPATHOLOGY LABORATORY Microscopic Description Specimen A. SKIN, right mid ant thigh: Sections show an exo-endophytic, papillomatous epidermal lesion with overlying hyperkeratosis and parakeratosis. The rete pegs appear bulbous and have a pushing border into the underlying dermis, which contains a predominantly lymphocytic infiltrate. An immunostain for Mib-1 highlights proliferating keratinocytes mostly confined to the basal layer of the epidermis. Additional deeper sections were obtained and reviewed. This lesion is not present at the sampled margin of the specimen. 0 4:27 PM CDT DERMATOPATHOLOGY LABORATORY Disclaimer An external and internal positive and negative controls are appropriate for the histochemical, immunohistochemical and immunofluorescence stain(s) in this case (if any), except where stated explicitly. The performance characteristics of the stain(s) cited in this report were developed and its performance characteristic determined by the Dermatopathology Laboratory at [facility], directed by Dr. Mayito Butt. These tests need not be, and therefore are not, approved by the [place] Food and Drug Administration. The tests are used for clinical purposes. Billing Codes Specimen Charges Stain Charges 75849 1 28226 1 0 4:27 PM CDT DERMATOPATHOLOGY LABORATORY Embedded Images 0 4:27 PM CDT DERMATOPATHOLOGY LABORATORY Pathology/Cytolog y TISSUE SPECIMEN FROM SKIN / Unknown 03/21/2020 03/22/2020 12:04 PM CDT Duke Funez MD LAB - PATHOLOGY/CYTO LOGY ORDERABLES DERMATOPATHOLOGY LABORATORY [facility] - Department of Dermatology [address] [place] [address], [address] [place] [address], [facility] [phone] documented in this encounter Visit Diagnoses Not on filedocumented in this encounter
--- OUTSIDE RECORDS SUMMARY | 2025-03-03 12:32 | XMS_ITS | Clinical Summary ---
Author Organization [facility] Address [address] [place] [address] Care Team Providers Care College Or University Faculty Member Name Role Phone Unavailable Primary Care Provider Unavailabl e Source Comments [facility],non-owned Affiliates and Associated Physician Practices is amultiple site organization consisting of ambulatory clinics and hospital sitesin [place], [place], [place] and [place]. This disclosure is being madepursuant to the Care Everywhere program and may not contain all information available regarding this patient. Last updated 18.[facility] [employer] Social History Tobacco Use Types Packs/Day Years Used Date Smoking Tobacco: Never Assessed Sex and Gender Information Value Date Recorded Sex Assigned at Not on file Gender Identity Not on file Sexual Orientation Not on file Plan of Treatment Health Maintenance Due Date Last Done Comments COLOGUARD (AGES 45-75) - COL ON CA SCREENING 1962 COLON MONITORING 1962 COLONOSCOPY - COLON CA SCREENING 1962 CT COLONOGRAPHY - COLON CA SCREENING 1962 Colorectal Cancer Screening 1962 FIT - COLON CA SCREENING 1962 FLEX SIG - COLON CA SCREENING 1962 LIPID TESTING 1962 MAMMOGRAM 1962 PAP SMEAR 1962 HIV SCREENING 1977 HEPATITIS C SCREENING 10/28/1980 DTAP/TDAP/TD VACCINES (1 - Tdap) 1981 PNEUMOCOCCAL VACCINE 50+ (1 of 1 - PCV) 2012 ZOSTER VACCINE (1 of 2) 2012 COVID-19 VACCINE ( - 2023-2 5 season) 2024 DEPRESSION SCREENING 11/23/2024 INFLUENZA VACCINE (Season Ended) 2025 Respiratory Syncytial Virus (RSV) Vaccine Pt: or over 60 yrs (1 - 1-dose 75+ series) 2037 HEPATITIS B VACCINE Aged Out No longe r eligible based on patient's age to complete this topic HIB VACCINE Aged Out No longer eligi ble based on patient's age to complete this topic HPV VACCINE Aged Out No longer eligi ble based on patient's age to complete this topic MENINGOCOCCAL (Group B) VACC INE SHARED DECISION-MAKING Aged Out No longer eligibl e based on patient's age to complete this topic MENINGOCOCCAL GROUPS A/C/Y/W VACCINE Aged Out No longer eligible b ased on patient's age to complete this topic PNEUMOCOCCAL VACCINE Aged Out No long er eligible based on patient's age to complete this topic
--- OUTSIDE RECORDS SUMMARY | 2025-03-03 12:32 | XMS_ITS ---
Author Organization [facility] Mental Status Section Date Assessment Total Score Description 10/01/2017 CAM 0 No delirium ind icated Problems Problem # Description Date of onset Resolved Date Code CodeSystem Concern Status 1 LOW BACK PAIN 09/30/[address] act wali Reason for Referral No Reasons for Referral Entered Social History Social History Observation Description Start Date End Date Code Code System Current Smoking Status Tobacco smoking consumption unknown 722296602 SNOMED CT Sex Assigned At Female 1960 [address]4 [facility]
--- OUTSIDE RECORDS SUMMARY | 2025-03-03 12:32 | XMS_ITS | Encounter Summary ---
Author Organization [facility] Address [address] [address] Care Team Providers Care Bacteriologist Fishery Name Role Phone Unavailable Primary Care Provider Unavailabl e Encounter Details Date Type Department Care Team (Late st Contact Info) Description 11/26/2022 Lab Requisition [facility] [address] [place] [id number] Duke Funez MD [address] [place] [address] Social History Tobacco Use Types [...] Priority Date/Time Associated Diagnosis Comments DERMATOPATHOLOGY Routine 11/25/2022 12:0 0 AM PRODUCT PROMOTER SALES PERSON documented in this encounter Results * DERMATOPATHOLOGY (11/25/2022 12:00 AM PRODUCT PROMOTER SALES PERSON) Case Report Dermatopathology Report Case: [id number] Authorizing Provider: Duke Funez MD Collected: 11/25/2022 12:00 AM Ordering Location: [facility] Received: 11/26/2022 02:00 PM Pathologist: Deb Yo MD Specimen: Skin, dorsal left radial prox hand 12:24 PM PRODUCT PROMOTER SALES PERSON DERMATOPATHOLOGY LABORATORY Final Diagnosis Specimen A. 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 The specimen consists of a shave biopsy measuring 8x8x2 mm. Jar 0. 3 12:24 PM [facility] DERMATOPATHOLOGY [facility]ORATORY Microscopic Description Specimen A. SKIN, dorsal left radial prox hand: The epidermis shows parakeratosis, full thickness disorderly maturation of keratinocytes, and dyskeratotic cells. Endophytic features are present. The lesion focally extends to the base of the specimen. 3 12:24 PM [facility] DERMATOPATHOLOGY [facility]ORATORY Disclaimer An external and internal positive and negative controls are appropriate for the histochemical, immunohistochemical and immunofluorescence stain(s) in this case (if any), except where stated explicitly. The performance characteristics of the stain(s) cited in this report were developed and its performance characteristic determined by the Dermatopathology Laboratory at [facility], directed by Dr. Mayito Butt. These tests need not be, and therefore are not, approved by the [place] Food and Drug Administration. The tests are used for clinical purposes. Billing Codes Specimen Charges Stain Charges 17471 1 3 12:24 PM [facility] DERMATOPATH[facility]Y [facility]ORATORY Embedded Images 3 12:24 PM [facility] DERMATOPATH[facility]ORY Pathology/Cytolog y TISSUE SPECIMEN FROM SKIN / Unknown 11/25/2022 11/26/2022 2:00 PM PRODUCT PROMOTER SALES PERSON Duke Funez MD LAB - PATHOLOGY/CYTO LOGY ORDERABLES DERMATOPATHOLOGY LABORATORY [facility] - Department of Dermatology [address] [place] [address], [facility] [phone] documented in this encounter Visit Diagnoses Not on filedocumented in this encounter
--- OUTSIDE RECORDS SUMMARY | 2025-03-03 12:32 | XMS_ITS | Encounter Summary ---
Author Organization [facility] Address [address] [place] [address] Care Team Providers Care Substation Wireman Name Role Phone Unavailable Primary Care Provider Unavailabl e Encounter Details Date Type Department Care Team (Late st Contact Info) Description 07/03/2022 Lab Requisition [facility] [address] [place] [phone] Duke Funez MD [address] [place] [address] Social History Tobacco Use Types [...] Priority Date/Time Associated Diagnosis Comments DERMATOPATHOLOGY Routine 07/02/2022 12:0 0 AM CDT documented in this encounter Results * DERMATOPATHOLOGY (07/02/2022 12:00 AM CDT) Case Report Dermatopathology Report Case: [id number] Authorizing Provider: Duke Funez MD Collected: 07/02/2022 12:00 AM Ordering Location: [facility] Received: 07/03/2022 01:48 PM Pathologist: Nohelia Butt MD Specimens: A) - Skin, left distal anterior thigh B) - Skin, above left lateral ankle C) - Skin, above left elbow on triceps D) - Skin, right triceps above elbow 5:56 PM CDT DERMATOPATHOLOGY LABORATORY Final Diagnosis Specimen A. SKIN, left distal anterior thigh: BASAL CELL CARCINOMA, NODULAR TYPE (C44.719) Specimen B. SKIN, above left lateral ankle: DERMATOFIBROMA (D23.9) Specimen C. SKIN, above left elbow on triceps: LICHEN PLANUS-LIKE KERATOSIS (BENIGN LICHENOID KERATOSIS) (L82.1) Specimen D. SKIN, right triceps above elbow: ACTINIC KERATOSIS (L57.0) 2 5:56 PM [facility] DERMATOPATHOLOGY LABORATORY Clinical History A-D: R/O ISK, BCC, SCC 2 5:56 PM [facility] DERMATOPATHOLOGY LABORATORY Gross Description Specimen A: Received is one formalin filled container labeled with the patient's name and designated left distal anterior thigh. The specimen consists of a shave biopsy measuring 3e1b9hz. Jar 0. Specimen B: Received is one formalin filled container labeled with the patient's name and designated above left lateral ankle. The specimen consists of a shave biopsy measuring [id number]. Jar 0. Specimen C: Received is one formalin filled container labeled with the patient's name and designated above left elbow on triceps. The specimen consists of a shave biopsy measuring 9y6r8qz. Jar 0. Specimen D: Received is one formalin filled container labeled with the patient's name and designated right triceps above elbow. The specimen consists of a shave biopsy measuring [id number]. Jar 0. 2 5:56 PM [facility] DERMATOPATHOLOGY LABORATORY Microscopic Description Specimen A. SKIN, left distal anterior thigh: Within the dermis there are aggregates of basaloid cells with a high nuclear to cytoplasmic ratio and peripheral palisading. Specimen B. SKIN, above left lateral ankle: There is epidermal hyperplasia. Within the dermis, there are fibrohistiocytic cells in haphazard array among coarse collagen bundles. Specimen C. SKIN, above left elbow on triceps: The epidermis is mildly acanthotic. There is a lichenoid infiltrate with vacuolar changes of basilar keratinocytes and scattered necrotic keratinocytes. Specimen D. SKIN, right triceps above elbow: There is focal parakeratosis. The lower half of the epidermis shows disorderly maturation of keratinocytes with nuclear pleomorphism. 2 5:56 PM [facility] DERMATOPATHOLOGY LABORATORY Disclaimer An external and internal positive and negative controls are appropriate for the histochemical, immunohistochemical and immunofluorescence stain(s) in this case (if any), except where stated explicitly. The performance characteristics of the stain(s) cited in this report were developed and its performance characteristic determined by the Dermatopathology Laboratory at [facility], directed by Dr. Mayito Butt. These tests need not be, and therefore are not, approved by the [place] Food and Drug Administration. The tests are used for clinical purposes. Billing Codes Specimen Charges Stain Charges 43461 66273 39025 13582 1 1 1 1 2 5:56 PM CDT DERMATOPATHOLOGY LABORATORY Embedded Images 2 5:56 PM CDT DERMATOPATHOLOGY LABORATORY Pathology/Cytology TISSUE SPECIMEN FROM SKIN / Unknown 07/02/2022 07/03/2022 1:48 PM CDT Miscellaneous samples (specimen) TISSUE SPECIMEN FROM SKIN / Unknown 07/02/2022 07/03/2022 1:48 PM CDT Miscellaneous samples (specimen) TISSUE SPECIMEN FROM SKIN / Unknown 07/02/2022 07/03/2022 1:48 PM CDT Miscellaneous samples (specimen) TISSUE SPECIMEN FROM SKIN / Unknown 07/02/2022 07/03/2022 1:48 PM CDT Duke Funez MD LAB - PATHOLOGY/CYTO LOGY ORDERABLES DERMATOPATHOLOGY LABORATORY [facility] - Department of Dermatology [address] [phone] documented in this encounter Visit Diagnoses Not on filedocumented in this encounter
== END 2025-03-03 12:29 | disposition home or self-care (01) ==
PROVIDERS: PCP Internal Medicine; Visit Provider Internal Medicine
DX: R92.8 Other abnormal and inconclusive findings on diagnostic imaging of breast (principal)
CPT/HCPCS: 76641; 77061; 77065; G0279

== ENCOUNTER 2025-05-15 12:24 | Outpatient (CLI) | payer BC, SELFPAY ==
--- NOTE | ~2025-05-15 | DEXA_ITS ---
Bone Density Report Name: REGINA WATSON Age: 64 Sex: Female Ethnicity: White Date of : 1960 Indication: osteopenia; hysterectomy; Referring Provider: HEMALATHA WILLIS Study: Bone densitometry was performed. Exam Date: May 15, 2025 Accession number: [id number] Bone Density: Region BMD T-score Z-score Classification AP Spine(L1-L4) 0.940 -1.0 0.6 Normal Femoral Neck (Left) 0.571 -2.5 -1.1 Osteoporosis Total Hip (Left) 0.759 -1.5 -0.4 Osteopenia Femoral Neck (Right) 0.579 -2.4 -1.0 Osteopenia Total Hip (Right) 0.705 -1.9 -0.9 Osteopenia Total Hip Mean 0.732 -1.7 -0.7 Osteopenia World Health Organization criteria for BMD impression classify patients as: Normal (T-score at or above -1.0), Osteopenia (T-score between -1.0 and -2.5), or Osteoporosis (T-score at or below -2.5). 10-year Fracture Risk: FRAX not reported because: Some T-score for Spine Total or Hip Total or Femoral Neck at or below -2.5 Previous Exams: -- Region Exam Age BMD T-score BMD Change BMD Change Date g/cm2 vs Baseline vs Previous -- AP Spine (L1-L4) 05/15/2025 64 0.940 -1.0 -14.1%* -2.9%* 12/04/2022 62 0.968 -0.7 -11.5%* -1.6% 11/14/2020 60 0.983 -0.6 -10.1%* 2.2% 06/29/2018 57 0.962 -0.8 -12.1%* -0.5% 06/09/2015 54 0.967 -0.7 -11.6%* -6.2%* 05/31/2013 52 1.031 -0.1 -5.8%* -5.8%* 03/22/2007 46 1.094 0.4 Total Hip(Left) 05/15/2025 64 0.759 -1.5 -12.0%* -1.1% 12/04/2022 62 0.768 -1.4 -10.9%* -1.4% 11/14/2020 60 0.779 -1.3 -9.7%* 4.8%* 06/29/2018 57 0.743 -1.6 -13.8%* -7.7%* 06/09/2015 54 0.805 -1.1 -6.7%* -2.1% 05/31/2013 52 0.822 -1.0 -4.6%* -4.6%* 03/22/2007 46 0.862 -0.7 Total Hip(Right) 05/15/2025 64 0.705 -1.9 -18.4%* -0.9% 12/04/2022 62 0.711 -1.9 -17.7%* -1.3% 11/14/2020 60 0.720 -1.8 -16.6%* -0.5% 06/29/2018 57 0.723 -1.8 -16.2%* -11.8%* 06/09/2015 54 0.820 -1.0 -5.0%* 3.5%* 05/31/2013 52 0.793 -1.2 -8.2%* -8.2%* 03/22/2007 46 0.864 -0.6 -- *Denotes significance at 95% confidence level, LSC for AP Spine = 0.022 g/cm2, LSC for Total Hip = 0.027 g/cm2 Clinical Information Provided by Patient: Has used the following medications: Vitamin D, Calcium Has the following medical conditions: Hysterectomy Patient maximum height was 66 Menopause Age: 42 No regular weight bearing exercise Drinks caffeinated beverages Onset of menses at age 16 Number of children 1 Missed period for more than 6 months in a row Impression: The patient has osteoporosis, based on the Left Femoral Neck T-score. The BMD for the AP Spine (L1-L4) decreased, changing by -2.9% since the last DXA exam. Discussion: INCREASED RISK OF FRACTURE. BONE DENSITY IS UNDESIRABLY LOW AT ONE OR MORE SKELETAL SITES, CONSISTENT WITH POSTMENOPAUSAL OSTEOPOROSIS. This patient's lowest T-score meets the World Health Organization's (WHO) criteria for osteoporosis at one or more sites (T-score -2.5 or below). In untreated patients, the risk of osteoporotic fracture increases approximately two-fold for each 1.0 SD decrease in T-score. Low bone density is not the only risk factor for fracture; also consider factors such as patient's age, frailty or poor health, risk of falling, risk of injury, previous osteoporotic fracture, family history of osteoporosis, cigarette smoking, low body weight, etc. Not everyone with low bone mineral density has osteoporosis; osteomalacia and other metabolic bone disorders should also be considered. Patients who have osteoporosis should be evaluated for specific diseases and conditions (secondary causes) that may cause or contribute to bone loss. The [place] [employer]ocrinologists (AACE) and National Osteoporosis Foundation (NOF) recommend pharmacologic intervention for all postmenopausal women whose T-score is in this range. The patient should follow a healthful lifestyle (good nutrition with adequate calcium and vitamin D, and appropriate weight-bearing exercise). Follow-Up: Consider a repeat BMD and Vertebral Fracture Assessment (VFA) exam in 2 years or sooner if medically necessary, to reassess this patient's status. Reported by: KAREL on 05/15/2025 12:45:00 PM. Reviewed, dictated and finalized at location A.
== END 2025-05-15 12:25 | disposition home or self-care (01) ==
LOC: MICIMG 12:26
PROVIDERS: PCP Internal Medicine; Visit Provider Obstetrics & Gynecology Gynecology
DX: M85.89 Other specified disorders of bone density and structure, multiple sites (principal); M81.0 Age-related osteoporosis without current pathological fracture
CPT/HCPCS: 77080